=== PATIENT | male | born 1950 | race Caucasian/White ===

== ENCOUNTER 2020-09-11 09:56 | Day surgery (SDC) | payer MEDICARE ==
[~2020-09-11] VITALS: Ht 162.6 cm; Wt 51.8 kg
[~2020-09-11 09:56] MED LIST: CIPROFLOXACIN 0.3% OPHTH SOLUTION 5ML BOTTLE. OD ONE; IV RINGERS,LACTATED 1000ML 1,000 ML IV SCH; LIDOCAINE 2% JELLY 6ML IN APPLICATOR. OD ONE; PROPARACAINE 0.5% OPHTH SOLUTION 15ML BOTTLE. OD ONE
[2020-09-11 10:36] VITALS: BP 131/62
[2020-09-11] MEDS ORDERED: ASPI-630 PO (10:47)
[2020-09-11] MEDS ORDERED: TRAZ-123 PO (10:47)
[2020-09-11] MEDS ORDERED: AMLO-187 PO (10:47)
[2020-09-11] MEDS ORDERED: DIAZ5TAB4 PO (10:47)
[2020-09-11] MEDS ORDERED: ATEN100T PO (10:47)
[2020-09-11] MEDS ORDERED: ALBU1.25 NEB (10:47)
[2020-09-11] MEDS ORDERED: CETI10TA30 PO (10:47)
[2020-09-11] MEDS ORDERED: VENL150C PO (10:47)
[2020-09-11] MEDS ORDERED: OMEP20CA16 PO (10:47)
[2020-09-11] MEDS ORDERED: SERT100T PO (10:47)
[2020-09-11] MEDS ORDERED: PRED20TA PO (10:47)
[2020-09-11] MEDS ORDERED: FLUT1DIS5 IH (10:47)
[2020-09-11] MEDS ORDERED: HYDR-2769 PO (10:47)
[2020-09-11] MEDS: CYCLOPENTOLATE 1% OPHTH SOLUTION 2ML BOTTLE. OD SCH ×3 (10:52→11:02)
[2020-09-11] MEDS: PHENYLEPHRINE 10% OPHTH SOLUTION 5ML BOTTLE. OD SCH ×3 (10:52→11:02)
[2020-09-11] MEDS ORDERED: NEO/POLYMYX/DEXAMETH OPHTH OINTMENT 3.5GM TUBE. ONE (12:09)
[2020-09-11] MEDS ORDERED: LIDOCAINE 1%/PHENYLEPH 1.5% PF OPHTH 1 ML VIAL. ONE (12:09)
[2020-09-11] MEDS ORDERED: BALANCED SALT IRRIG OPHTH SOLN 15 ML BOTTLE. ONE (12:09)
[2020-09-11] MEDS ORDERED: CHONDROIT-SOD-HYALURONATE KIT. ONE (12:09)
[2020-09-11 13:08] VITALS: BP 117/65
--- NOTE | 2020-09-11 13:23 | OP ---
DATE OF SURGERY: 09/11/2020 PREOPERATIVE DIAGNOSIS: Senile cataract, right eye. POSTOPERATIVE DIAGNOSIS: Senile cataract, right eye. PROCEDURE: Phacoemulsification with posterior chamber lens implant, right eye. ANESTHESIA: Local with MAC. DESCRIPTION OF PROCEDURE: The patient's anesthetic and dilating drops were placed in the right eye in the outpatient area. Honan balloon cuff was used for about 10 minutes. The patient was then brought to the operating room, positioned on the table and the right eye was prepped and draped in the usual sterile manner for an intraocular procedure. A lid speculum was placed between the eyelids and the operating microscope was brought into position and a paracentesis incision was made superior temporally. Lidocaine was injected into the anterior chamber followed by injection of Viscoat. A 2.4 mm incision was then made temporally. I was unable to perform a capsulorrhexis about the pupillary border and the lens nucleus was hydrodissected and phacoemulsified with the phaco handpiece. Remaining cortex was aspirated with the I/A handpiece. Provisc was used to insufflate the bag and a posterior chamber lens was injected into the bag without difficulty. The Provisc was aspirated with the I/A handpiece. The eye was then pressurized. The wounds were checked for leaks and there were none. The epithelium was a little bit loose on the corneal surface, but are left in place and we will reevaluate that tomorrow when I see him in the office. Maxitrol ointment was instilled in the conjunctival sac after the drape and speculum were removed and the eye was shielded. I will see the patient upon my office. He was taken to the recovery room in satisfactory condition. [facility] [place] [facility] [place]: Aleksandra TID: [id number]
== END 2020-09-11 14:00 | disposition home or self-care (01) ==
LOC: SURG 09:56
PROVIDERS: ATTEND Ophthalmology
DX: H25.89 Other age-related cataract (principal); I10 Essential (primary) hypertension; K21.9 Gastro-esophageal reflux disease without esophagitis; F41.9 Anxiety disorder, unspecified; F17.210 Nicotine dependence, cigarettes, uncomplicated; Z79.82 Long term (current) use of aspirin; Z79.899 Other long term (current) drug therapy; Z98.890 Other specified postprocedural states; Z88.0 Allergy status to penicillin
CPT/HCPCS: 66984; J0171; J3490; V2632

== ENCOUNTER → 2020-09-25 | Day surgery (SDC) | payer MEDICARE ==
[~2020-09-25] MED LIST changes: +ALBU1.25 NEB; +AMLO-187 PO; +ASPI-630 PO; +ATEN100T PO; +CETI10TA30 PO; +CHONDROIT-SOD-HYALURONATE KIT. ONE; +CHONDROITIN-SOD-HYALURONATE 0.5 ML DISP.SYRIN. ONE; -CIPROFLOXACIN 0.3% OPHTH SOLUTION 5ML BOTTLE. OD ONE; +CIPROFLOXACIN 0.3% OPHTH SOLUTION 5ML BOTTLE. OS ONE; +DIAZ5TAB4 PO; +FLUT1DIS5 IH; +HYDR-2769 PO; +LIDOCAINE 1%/PHENYLEPH 1.5% PF OPHTH 1 ML VIAL. ONE; -LIDOCAINE 2% JELLY 6ML IN APPLICATOR. OD ONE; +LIDOCAINE 2% JELLY 6ML IN APPLICATOR. OS ONE; +NEO/POLYMYX/DEXAMETH OPHTH OINTMENT 3.5GM TUBE. ONE; +OMEP20CA16 PO; +PRED20TA PO; -PROPARACAINE 0.5% OPHTH SOLUTION 15ML BOTTLE. OD ONE; +PROPARACAINE 0.5% OPHTH SOLUTION 15ML BOTTLE. OS ONE; +SERT100T PO; +TRAZ-123 PO; +VENL150C PO; +fentaNYL PF VIAL 100 MCG/2 ML VIAL ONE
[2020-09-25 09:53] VITALS: BP 140/65
[2020-09-25] MEDS: PHENYLEPHRINE 10% OPHTH SOLUTION 5ML BOTTLE. OS SCH ×3 (10:11→10:21)
[2020-09-25] MEDS: CYCLOPENTOLATE 1% OPHTH SOLUTION 2ML BOTTLE. OS SCH ×3 (10:12→10:21)
[2020-09-25 11:55] VITALS: BP 133/62
--- NOTE | 2020-09-25 12:51 | OP ---
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 PROCEDURE: Phacoemulsification with posterior chamber lens implant, left eye. ANESTHESIA: Topical with MAC. DESCRIPTION OF PROCEDURE: The patient's dilating and anesthetic drops were applied in the outpatient department and the Hon[place] balloon cuff was used for about 10 minutes. The patient was then brought to the operating room and positioned on the table. The left eye was prepped and draped in the usual sterile manner for an intraocular procedure. A lid speculum was placed between the eyelids and the operating microscope brought into position. A paracentesis incision was made inferotemporally and a 1% lidocaine injected into the anterior chamber followed by an injection of Viscoat. The primary 2.4 mm incision was then made temporally. A capsulorrhexis was then performed throughout the dilated pupillary border. The lens nucleus was hydrodissected and phacoemulsified with the phaco handpiece without difficulty. Remaining cortex was aspirated with the I/A handpiece. Provisc was then used to insufflate the bag and a posterior chamber lens was injected into the bag without difficulty. After positioning, the eye was then pressurized and the wound checked for leaks and there were none. The speculum and drape were removed and Maxitrol ointment was instilled in the conjunctival sac and the eye was shielded. The patient was taken to the recovery room in satisfactory condition. I will see him within several days in my office. [place] DR: Aleksandra TID: [id number]
== END ==
LOC: SURG 09:22
PROVIDERS: ATTEND Ophthalmology
DX: H25.812 Combined forms of age-related cataract, left eye (principal); I10 Essential (primary) hypertension; F41.9 Anxiety disorder, unspecified; F17.210 Nicotine dependence, cigarettes, uncomplicated; Z87.01 Personal history of pneumonia (recurrent); K21.9 Gastro-esophageal reflux disease without esophagitis; Z79.899 Other long term (current) drug therapy; Z98.890 Other specified postprocedural states
CPT/HCPCS: 66984; J0171; J3010; J3490; V2632